=== PATIENT | female | born 1950 | race Caucasian/White ===

== ENCOUNTER 2021-11-12 11:47 | Emergency (ER) | payer MEDICARE ==
[2021-11-12] MEDS ORDERED: methylPREDNISolone Sod Succ/PF 125 MG/2 ML VIAL ONE (12:43)
== END 2021-11-12 13:05 | disposition home or self-care (01) ==
LOC: NAV ERS 11:47
DX: L50.9 Urticaria, unspecified (principal)
CPT/HCPCS: 96372; 99282; J2930